=== PATIENT | male | born 1995 | race Caucasian/White ===

== ENCOUNTER 2021-06-01 14:55 | Emergency (ER) | payer OTHER ==
[~2021-06-01] VITALS: Ht 175.3 cm; Wt 86.2 kg
== END 2021-06-01 16:44 | disposition home or self-care (01) ==
LOC: ER 14:55
DX: Z11.3 Encounter for screening for infections with a predominantly sexual mode of transmission (principal)
CPT/HCPCS: 86694; 99283

== ENCOUNTER 2022-06-17 08:58 | Emergency (ER) | payer OTHER | END 2022-06-17 10:48 | disposition home or self-care (01) | LOC: ER 08:58 | DX: M25.561 Pain in right knee (principal); X50.1XXA Overexertion from prolonged static or awkward postures, initial encounter ==